=== PATIENT | male | born 1975 | race Caucasian/White ===

== ENCOUNTER 2020-11-14 08:40 | Outpatient (CLI) | payer OTHER | END 2020-11-14 08:55 | disposition home or self-care (01) | LOC: NUCLEAR 08:40 | DX: K30 Functional dyspepsia (principal); R14.1 Gas pain | CPT/HCPCS: 78227; A9537; J2805 ==

== ENCOUNTER 2024-01-12 07:37 | Outpatient (CLI) | payer OTHER | END 2024-01-12 07:52 | disposition home or self-care (01) | LOC: MRI 07:37 | DX: M25.562 Pain in left knee (principal) | CPT/HCPCS: 73718 ==